=== PATIENT | male | born 1950 | race Native Hawaiian/Other Pacific Islander ===

== ENCOUNTER 2022-10-31 18:29 | Emergency (ER) | payer OTHER ==
[~2022-10-31] VITALS: Ht 165.1 cm; Wt 120.8 kg
[2022-10-31 18:29] VITALS: BP 161/81; TEMP 97.7
[2022-10-31 18:48] LABS: PLATELET COUNT 165 K/uL (142-355)
[2022-10-31 19:46] LABS: POTASSIUM 3.8 mmol/L (3.6-5.2)
[2022-10-31] MEDS ORDERED: TAMS0.4C PO (21:45)
[2022-10-31] MEDS ORDERED: HYDROCHLOROT12.5 M1 PO (21:46)
[2022-10-31] MEDS ORDERED: LISI5TAB10 PO (21:46)
[2022-10-31] MEDS ORDERED: DIVA250T PO (21:48)
[2022-10-31] MEDS ORDERED: ALBUTEROL108 MCG/AC INH (21:49)
[2022-10-31] MEDS ORDERED: TYLENOL325 MG PO (21:50)
[2022-11-07] MEDS ORDERED: ACET-206 PO (10:49)
[2022-11-07] MEDS ORDERED: ALBU90AE13 INH (10:49)
[2022-11-07] MEDS ORDERED: HYDR25TA60 PO (10:49)
[2022-11-07] MEDS ORDERED: DIVALPROEX500 MG PO (10:49)
[2022-11-07] MEDS ORDERED: LISI5TAB10 PO (10:52)
[2022-11-07] MEDS ORDERED: LOPE2CAP17 PO (10:52)
[2022-11-07] MEDS ORDERED: SERT50TA PO (10:52)
[2022-11-07] MEDS ORDERED: TAMS0.4C PO (10:53)
== END 2022-10-31 20:06 | disposition other institution (70) ==
LOC: ED 18:29
PROVIDERS: Family Medicine
DX: R45.6 Violent behavior (principal); Z02.79 Encounter for issue of other medical certificate
CPT/HCPCS: 80053; 81002; 85027; 87635; 93005; 99283; U0003